=== PATIENT | female | born 2005 | race Caucasian/White ===

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

== ENCOUNTER 2024-11-22 17:52 | Emergency (ER) | payer OTHER ==
[2024-11-22 19:54] VITALS: PULSE 68
[2024-11-22 19:59] LABS: BASOPHILS ABSOLUTE AUTO 0.02 K/uL (0.00-0.10); BASOPHILS PERCENT AUTO 0.2 % (0.1-1.3); EOSINOPHILS ABSOLUTE AUTO 0.07 K/uL (0.00-0.40); EOSINOPHILS PERCENT AUTO 0.8 % (0.0-5.4); HEMATOCRIT 33.9 % (34.3-46.0); HEMOGLOBIN 11.9 g/dL (11.2-15.5); IMMATURE GRAN ABSOLUTE AUTO 0.02 K/uL (0.00-0.23); IMMATURE GRAN PERCENT AUTO 0.2 % (0.0-0.7); LYMPHOCYTES ABSOLUTE AUTO 1.75 K/uL (0.8-3.3); LYMPHOCYTES PERCENT AUTO 20.3 % (11.4-47.7); MEAN CORPUSCULAR HEMOGLOBIN 29.8 pg (31.6-35.5); MEAN CORPUSCULAR HGB CONC 35.1 g/dL (31.6-35.5); MEAN CORPUSCULAR VOLUME 84.8 fL (81.4-99.0); MONOCYTES ABSOLUTE AUTO 0.62 K/uL (0.20-0.90); MONOCYTES PERCENT AUTO 7.2 % (3.3-12.6); NEUTROPHILS ABSOLUTE AUTO 6.15 K/uL (1.0-7.6); NEUTROPHILS PERCENT AUTO 71.3 % (40.0-78.1); PLATELET COUNT,PLT 186 K/uL (130-375); WHITE BLOOD CELL COUNT,WBC 8.6 K/uL (3.2-11.0)
[2024-11-22 20:30] LABS: ANION GAP 10.7 mmol/L (5.0-14.0); BLOOD UREA NITROGEN,BUN 9 mg/dL (7-18); CALCIUM 9.4 mg/dL (8.5-10.1); CARBON DIOXIDE,CO2 25 mmol/L (21-32); CHLORIDE,CL 104 mmol/L (100-108); CREATININE 0.6 mg/dL (0.6-1.0); EST CRCL DRUG DOSING (CG) 144.23 mL/min; ESTIMATED GFR 131 mL/min (>60); GLUCOSE RANDOM 95 mg/dL (74-106); POTASSIUM,K 3.8 mmol/L (3.6-5.2); SODIUM,NA 140 mmol/L (140-148)
[2024-11-22 20:33] LABS: TROPONIN I HIGH SENSITIVITY < 4.0 pg/mL (<=60.3)
[2024-11-22] MEDS: LORazepam 1 MG Tab PO ONE (21:02)
[2024-11-22 21:46] VITALS: BP 119/73
== END 2024-11-22 22:44 | disposition home or self-care (01) ==
LOC: JP.ED 17:52
DX: F41.1 Generalized anxiety disorder (principal); Z79.899 Other long term (current) drug therapy
CPT/HCPCS: 36415; 80048; 84484; 85025; 93005; 99285; A9270

== ENCOUNTER 2025-01-21 07:32 | Day surgery (SDC) | payer OTHER ==
[2025-01-21] MEDS: Scopalamine 1mg/3day Transdermal Patch TOP SCH (08:22)
[2025-01-21] MEDS: Lactated Ringers 1,000 ML IV SCH (08:24)
[2025-01-21] MEDS ORDERED: Ondansetron 4 MG/2 ML SDV ONE (08:28)
[2025-01-21] MEDS ORDERED: Succinylcholine 200 MG/10 ML MDV ONE (08:28)
[2025-01-21] MEDS ORDERED: Propofol 200 MG/20 ML SDV ONE (08:28)
[2025-01-21] MEDS ORDERED: Dexamethasone 4 MG/ML SDV ONE (08:28)
[2025-01-21] MEDS ORDERED: fentaNYL 250 MCG/5 ML SDV ONE (08:28)
[2025-01-21] MEDS ORDERED: Neostigmine Methylsulfate 10 MG/10 ML MDV ONE (08:28)
[2025-01-21] MEDS ORDERED: Midazolam 1 MG/ML 2 ML SDV ONE (08:28)
[2025-01-21] MEDS ORDERED: Glycopyrrolate 0.2 MG/ML 5 ML MDV ONE (08:28)
[2025-01-21] MEDS ORDERED: Rocuronium 50 MG/5 ML Vial ONE (08:28)
[2025-01-21] MEDS: ceFAZolin 2 GM in Premix Bag 1 BAG IV ONE (08:55)
[2025-01-21] MEDS: Bupivacaine 0.25%/EPINEPHrine 1:200,000 30 ML SDV ONE (09:25)
[2025-01-21] MEDS ORDERED: Ketorolac 30 MG/ML SDV ONE (09:38)
[2025-01-21] MEDS ORDERED: Lactated Ringers 1,000 ML ONE (09:49)
[2025-01-21] MEDS: oxyCODONE 5 MG Tab PO PRN (12:18)
[2025-01-21 14:09] VITALS: BP 106/66; PULSE 75
== END 2025-01-21 14:13 | disposition home or self-care (01) ==
LOC: JP.SDS 07:32
PROVIDERS: ATTEND Surgery
DX: K81.1 Chronic cholecystitis (principal); K82.8 Other specified diseases of gallbladder; K21.9 Gastro-esophageal reflux disease without esophagitis; F41.1 Generalized anxiety disorder; F17.290 Nicotine dependence, other tobacco product, uncomplicated; Z79.899 Other long term (current) drug therapy
CPT/HCPCS: 00790; 47562; 81025; A9270; J0330; J0690; J1100; J1596; J1885; J2250; J2405; J2704; J2710; J3010; J7120; 88304; J3490

== ENCOUNTER 2025-06-13 06:34 | Day surgery (SDC) | payer OTHER ==
[2025-06-13] MEDS: Lactated Ringers 1,000 ML IV SCH (07:24)
[2025-06-13] MEDS ORDERED: Midazolam 1 MG/ML 2 ML SDV ONE (07:25)
[2025-06-13] MEDS ORDERED: Propofol 200 MG/20 ML SDV ONE (07:25)
[2025-06-13] MEDS ORDERED: fentaNYL 100 MCG/2 ML SDV ONE (07:25)
[2025-06-13] MEDS: Hyoscyamine 0.125 MG Tab.SL SL ONE (10:38)
[2025-06-13 10:39] VITALS: BP 97/59; PULSE 61
[2025-06-13] MEDS ORDERED: Alum Hydrox/Mag Hydrox/Simeth 360 ML, Lidocaine 2% 60 ML PO PRN (10:41)
[2025-06-13] MEDS: Alum Hydrox/Mag Hydrox/Simeth 360 ML, Lidocaine 2% 60 ML PO PRN (10:58)
== END 2025-06-13 12:12 | disposition home or self-care (01) ==
LOC: JP.SDS 06:34
PROVIDERS: ATTEND Surgery
DX: K21.9 Gastro-esophageal reflux disease without esophagitis (principal); F17.290 Nicotine dependence, other tobacco product, uncomplicated; Z79.899 Other long term (current) drug therapy
CPT/HCPCS: 00731; 43235; 81025; 91035; A9270; J2250; J2704; J3010; J3490; J7120; J1171